=== PATIENT | female | born 1990 | race Caucasian/White ===

== ENCOUNTER 2024-10-08 10:12 | Outpatient (RCR) | payer OTHER, SELFPAY | END 2024-10-08 23:59 | disposition home or self-care (01) | LOC: RPT 10:12 | PROVIDERS: ATTENDING PHYSICIAN Family Medicine | DX: N81.89 Other female genital prolapse (principal); Z73.6 Limitation of activities due to disability | CPT/HCPCS: 97112; 97162; 97530 ==

== ENCOUNTER 2024-12-03 17:08 | Outpatient (RCR) | payer OTHER, SELFPAY | END 2024-12-03 23:59 | disposition home or self-care (01) | LOC: RPT 17:08 | PROVIDERS: ATTENDING PHYSICIAN Family Medicine | DX: N81.89 Other female genital prolapse (principal); Z73.6 Limitation of activities due to disability | CPT/HCPCS: 97112; 97140 ==

== ENCOUNTER 2024-12-31 09:39 | Outpatient (RCR) | payer OTHER, SELFPAY | END 2024-12-31 23:59 | disposition home or self-care (01) | LOC: RPT 09:39 | PROVIDERS: ATTENDING PHYSICIAN Family Medicine | DX: N81.89 Other female genital prolapse (principal); Z73.6 Limitation of activities due to disability | CPT/HCPCS: 97112; 97140 ==

== ENCOUNTER 2025-01-15 09:16 | Outpatient (RCR) | payer OTHER, SELFPAY | END 2025-01-15 23:59 | disposition home or self-care (01) | LOC: RPT 09:16 | PROVIDERS: ATTENDING PHYSICIAN Family Medicine | DX: N81.89 Other female genital prolapse (principal); Z73.6 Limitation of activities due to disability | CPT/HCPCS: 97112; 97140; 97530 ==

== ENCOUNTER 2025-03-04 17:50 | Outpatient (RCR) | payer OTHER, SELFPAY | END 2025-03-04 23:59 | disposition home or self-care (01) | LOC: RPT 17:50 | PROVIDERS: ATTENDING PHYSICIAN Family Medicine | DX: N81.89 Other female genital prolapse (principal); Z73.6 Limitation of activities due to disability | CPT/HCPCS: 97110; 97112; 97140; 97530 ==